=== PATIENT | female | born 1995 | race Caucasian/White ===

== ENCOUNTER 2018-08-02 10:39 | Emergency (ER) | payer OTHER ==
[2018-08-02 11:30] VITALS: BP 96/77
[2018-08-02] MEDS ORDERED: Albuterol 2.5 MG/3 ML NEB.SOL* (0.083%) INH ONE (12:33)
--- NOTE | 2018-08-02 12:38 | ED ---
Respiratory - HPI Summary HPI Summary: complaining of congestion, with cough, hx. of asthma. felt hot , did not take her temperature, nonsmoker, no pleuritic chest pain stepped on something with her right foot, pain on weight bearing - History of Current Complaint Chief Complaint: UCGeneralIllness Stated Complaint: RIGHT FOOT COMPLAINT,COLD SXS Time Seen by Provider: 08/02/18 12:03 Hx Obtained From: Patient Onset/Duration: Gradual Onset Initial Severity: Moderate Pain Intensity: 0 Character: Wheezing, Cough (Productive) Sputum Amount: Moderate Sputum Color: Yellow Aggravating Factor(s): Nothing Alleviating Factor(s): Dose Of Medications Associated Signs and Symptoms: Negative - Risk Factors Status Asthmaticus Risk Factors: Negative Pulmonary Embolism Risk Factors: Negative Cardiac Risk Factors: Negative Pseudomonas Risk Factors: Negative Tuberculosis Risk Factors: Negative - Allergy/Home Medications Allergies/Adverse Reactions: Allergies Allergy/AdvReac Type Severity Reaction Status Date / Time No Known Allergies Allergy Verified 08/02/18 11:23 PMH/Surg Hx/FS Hx/Imm Hx Previously Healthy: Yes Respiratory History: Reports: Hx Asthma - Surgical History Surgery Procedure, Year, and Place: LEFT knee Infectious Disease History: Yes Infectious Disease History: Reports: 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 Denies: Traveled Outside the [place] in Last 30 Days - Social History Alcohol Use: Weekly Alcohol Amount: 2-3/week Substance Use Type: Reports: None Smoking Status (MU): Never Smoked Tobacco Review of Systems Constitutional: Negative Eyes: Negative Positive: Sore Throat Cardiovascular: Negative Positive: Shortness Of Breath Gastrointestinal: Negative Genitourinary: Negative Musculoskeletal: Negative Skin: Other - pain on weight bearing right foot Neurological: Negative All Other Systems Reviewed And Are Negative: Yes Physical Exam Triage Information Reviewed: Yes Vital Signs On Initial Exam: Initial Vitals Temp Pulse Resp BP Pulse Ox 36.4 C 72 16 96/77 100 08/02/18 11:24 08/02/18 11:24 08/02/18 11:24 08/02/18 11:24 08/02/18 11:24 Vital Signs Reviewed: Yes Appearance: Positive: Well-Appearing Skin: Positive: Warm, Dry Head/Face: Positive: Normal Head/Face Inspection Eyes: Positive: Normal ENT: Positive: Normal ENT inspection Neck: Positive: Supple Respiratory/Lung Sounds: Positive: Clear to Auscultation Cardiovascular: Positive: Normal Musculoskeletal: Positive: Other - right foot, with ? foreign body in the forefoot and the right lateral foot Diagnostics - Vital Signs Vital Signs Temp Pulse Resp BP Pulse Ox 08/02/18 11:24 36.4 C 72 16 96/77 100 - Laboratory Lab Statement: Any lab studies that have been ordered have been reviewed, and results considered in the medical decision making process. Disposition - Diagnoses Provider Diagnoses: Asthma exacerbation, Foreign body in foot Is Visit Related: No Discharge - Sign-Out/Discharge Documenting (check all that apply): Patient Departure All imaging exams completed and their final reports reviewed: Yes - foreign body foot in the soft tissues at level of metatarsal phalangeal joint - Discharge Plan Condition: Good Disposition: HOME Prescriptions: Montelukast Sodium TAB* [Singulair TAB*] 10 mg PO BEDTIME #30 tab Patient Education Materials: Asthma (DC), Soft Tissue Foreign Body (ED) Forms: *School Release Referrals: Eliceo Manzanares DPM [Doctor of Podiatric Medicine] - No Primary Care Phys,NOPCP [Primary Care Provider] - - Billing Disposition and Condition Condition: GOOD Disposition: Home
--- NOTE | 2018-08-02 12:58 | RAD ---
Indication: RIGHT foot pain. Possibly stepped on foreign body. Comparison: No relevant prior exams [place] [facility] [place]. Technique: AP and lateral views RIGHT foot. REPORT AND IMPRESSION: #. Reference the lateral view there is an approximate 1.5 mm linear radiopaque density within the superficial plantar soft tissues at the level of the metatarsal phalangeal joints corresponding with the region of clinical concern based on the paper clip marker on the image. #. No subcutaneous emphysema evident. #. Negative for fracture or malalignment.
== END 2018-08-02 14:03 | disposition home or self-care (01) ==
LOC: UCCORT 10:39
DX: J45.901 Unspecified asthma with (acute) exacerbation (principal); W45.8XXA Other foreign body or object entering through skin, initial encounter; Y92.9 Unspecified place or not applicable
CPT/HCPCS: 99202; G0463

== ENCOUNTER 2019-02-08 16:08 | Emergency (ER) | payer OTHER ==
[2019-02-08 17:12] VITALS: BP 94/69
--- NOTE | 2019-02-08 17:49 | UC ---
Back Pain HPI - HPI Summary HPI Summary: 23 yo female drank heavily on 02/05 When she awoke 02/06 she had mid thoracic back pain No recalled trauma hurts to take a deep breath hurts to lift hurts to wear back pack - History of Current Complaint Chief Complaint: UCBackPain Stated Complaint: MID UPPER BACK PAIN Time Seen by Provider: 02/08/19 17:40 Hx Obtained From: Patient Hx Last Menstrual Period: 3-4 months ago Onset/Duration: Gradual Onset, Lasting Days Timing: Constant Severity Initially: Moderate Severity Currently: Moderate Pain Intensity: 5 Pain Scale Used: 0-10 Numeric Character: Dull, Aching, Throbbing Aggravating Factor(s): Movement, Lifting, Bending Alleviating Factor(s): Rest Associated Signs And Symptoms: Positive: Negative Full Body (No Head): 1 - tender/pain - Allergies/Home Medications Allergies/Adverse Reactions: Allergies Allergy/AdvReac Type Severity Reaction Status Date / Time No Known Allergies Allergy Verified 02/08/19 17:12 PMH/Surg Hx/FS Hx/Imm Hx Previously Healthy: Yes - Surgical History Surgical History: Yes Surgery Procedure, Year, and Place: LEFT knee - Family History Known Family History: Positive: Hypertension - Social History Alcohol Use: Weekly Alcohol Amount: 2-3/week Substance Use Type: None Smoking Status (MU): Never Smoked Tobacco - Immunization History Most Recent Tetanus Shot: UTD Review of Systems All Other Systems Reviewed And Are Negative: Yes Constitutional: Positive: Negative Skin: Positive: Negative Eyes: Positive: Negative ENT: Positive: Negative Respiratory: Positive: Negative Cardiovascular: Positive: Negative Gastrointestinal: Positive: Negative Genitourinary: Positive: Negative Motor: Positive: Negative Neurovascular: Positive: Negative Musculoskeletal: Positive: Myalgia - thoracic Neurological: Positive: Negative Psychological: Positive: Negative Physical Exam Triage Information Reviewed: Yes Appearance: Well-Appearing, No Pain Distress, Well-Nourished Vital Signs: Initial Vital Signs Temp 98.3 F 02/08/19 17:03 Pulse 60 02/08/19 17:03 Resp 18 02/08/19 17:03 BP 94/69 02/08/19 17:03 Pulse Ox 100 02/08/19 17:03 Vital Signs Reviewed: Yes Eyes: Positive: Conjunctiva Clear ENT: Positive: Hearing grossly normal. Negative: Nasal congestion, Nasal drainage, Tonsillar exudate, Trismus, Muffled voice, Hoarse voice Neck: Positive: Supple, Nontender, No Lymphadenopathy Respiratory: Positive: Lungs clear, Normal breath sounds, No respiratory distress, No accessory muscle use Cardiovascular: Positive: RRR Abdominal Exam: Normal Musculoskeletal: Positive: ROM Intact, No Edema Neurological: Positive: Alert Psychological Exam: Normal Skin Exam: Normal Back Pain Course/Dx - Differential Dx/Diagnosis Provider Diagnosis: Upper back strain Discharge - Sign-Out/Discharge Documenting (check all that apply): Patient Departure All imaging exams completed and their final reports reviewed: No Studies - Discharge Plan Condition: Stable Disposition: HOME Prescriptions: Cyclobenzaprine (NF) [Cyclobenzaprine 5 MG (NF)] 5 mg PO TID PRN #21 tab PRN Reason: Spasms - Back Patient Education Materials: Thoracic Back Strain (ED) Forms: *School Release Referrals: No Primary Care Phys,NOPCP [Primary Care Provider] - Additional Instructions: aleve 2 twice daily recheck in 1 week if not better - Billing Disposition and Condition Condition: STABLE Disposition: Home
== END 2019-02-08 18:00 | disposition home or self-care (01) ==
LOC: UCCORT 16:08
DX: S29.012A Strain of muscle and tendon of back wall of thorax, initial encounter (principal); X58.XXXA Exposure to other specified factors, initial encounter; Y92.9 Unspecified place or not applicable
CPT/HCPCS: 99212; G0463

== ENCOUNTER 2019-07-31 10:02 | Emergency (ER) | payer OTHER ==
[2019-07-31 11:04] VITALS: BP 102/60
--- NOTE | 2019-07-31 11:08 | UC ---
Throat Pain/Nasal Ruben HPI - History of Current Complaint Chief Complaint: UCRespiratory Stated Complaint: COUGH,SORE THROAT Time Seen by Provider: 07/31/19 11:00 Hx Obtained From: Patient Hx Last Menstrual Period: PERIODS ARE IRREGULAR. LAST PERIOD IN MAY ?: No Onset/Duration: Sudden Onset, Lasting Days - 4 Severity: Mild Pain Intensity: 0 Associated Signs & Symptoms: Positive: Dysphagia, Sinus Discomfort, Nasal Discharge - Allergies/Home Medications Allergies/Adverse Reactions: Allergies Allergy/AdvReac Type Severity Reaction Status Date / Time No Known Allergies Allergy Verified 07/31/19 10:56 Home Medications: Home Medications D-Methorphan/PE/Acetaminophen [Theraflu Severe Cold Mult 20-10-500 mg] 1 tammy PO PRN 07/31/19 [History] diPHENhydraMINE PO* [Benadryl PO 25 MG TAB*] 50 mg PO Q6H PRN 07/31/19 [History Confirmed 07/31/19] PMH/Surg Hx/FS Hx/Imm Hx Previously Healthy: Yes - Surgical History Surgical History: Yes Surgery Procedure, Year, and Place: LEFT knee - Family History Known Family History: Positive: Hypertension - Social History Alcohol Use: Occasionally Alcohol Amount: 2-3/week Substance Use Type: Marijuana Substance Use Comment - Amount & Last Used: OCCASIONALLY Smoking Status (MU): Never Smoked Tobacco - Immunization History Most Recent Tetanus Shot: UTD Review of Systems All Other Systems Reviewed And Are Negative: Yes Constitutional: Positive: Chills, Fatigue ENT: Positive: Sore Throat, Ear Ache, Nasal Discharge, Sinus Congestion Respiratory: Positive: Cough Neurological: Positive: Headache Is Patient Immunocompromised?: No Physical Exam Triage Information Reviewed: Yes Appearance: Well-Nourished, Ill-Appearing, Pain Distress Vital Signs: Initial Vital Signs Temp 98 F 07/31/19 10:58 Pulse 94 07/31/19 10:58 Resp 15 07/31/19 10:58 BP 102/60 07/31/19 10:58 Pulse Ox 100 07/31/19 10:58 Vital Signs Reviewed: Yes Eye Exam: Normal ENT: Positive: Pharyngeal erythema - with PND, Nasal congestion, Nasal drainage , TM bulging, TM dull - right ear, TM red Dental Exam: Normal Neck exam: Normal Respiratory Exam: Normal Respiratory: Positive: Chest non-tender, Lungs clear, Normal breath sounds Cardiovascular Exam: Normal Cardiovascular: Positive: RRR Abdominal Exam: Normal Abdomen Description: Positive: Nontender, No Organomegaly, Soft Bowel Sounds: Positive: Present Musculoskeletal Exam: Normal Neurological Exam: Normal Skin Exam: Normal Throat Pain/Nasal Course/Dx - Course Course Of Treatment: hx obtained, exam performed ,meds reviewed, treated for right otitis, - Differential Dx/Diagnosis Differential Diagnosis/HQI/PQRI: Laryngitis, Pharyngitis, Sinusitis Provider Diagnosis: Right otitis media with effusion Discharge ED - Sign-Out/Discharge Documenting (check all that apply): Patient Departure All imaging exams completed and their final reports reviewed: No Studies - Discharge Plan Condition: Stable Disposition: HOME Prescriptions: Amoxicillin PO (*) [Amoxicillin 875 MG (*)] 875 mg PO BID #20 tab Patient Education Materials: Ear Infection (ED) Forms: *Work Release Referrals: No Primary Care Phys,NOPCP [Primary Care Provider] - Additional Instructions: 1. take the medication as prescribed. 2. Increase fluids and get rest 3. FOllow up if not improving in 1-2 weeks or symtpoms worsen - Billing Disposition and Condition Condition: STABLE Disposition: Home - Attestation Statements Provider Attestation: I was available for consult. This patient was seen by the JOSE ELIAS. The patient was not presented to , seen by or examined by -Kana Pradhan MD
== END 2019-07-31 11:21 | disposition home or self-care (01) ==
LOC: UCCORT 10:02
DX: H66.91 Otitis media, unspecified, right ear (principal); J06.9 Acute upper respiratory infection, unspecified
CPT/HCPCS: 99212; G0463

== ENCOUNTER 2019-10-24 09:21 | Emergency (ER) | payer OTHER ==
[2019-10-24 09:50] VITALS: BP 91/74
--- NOTE | 2019-10-24 10:07 | UC ---
Back Pain HPI - HPI Summary HPI Summary: Pt presents with sudden onset of right side low back pain that radiates across low back and posteriorly down right leg to mid thigh. denies numbness, tingling or loss of bowel or bladder control, denies injury. Pt woke this morning with stiffness and pain this morning. - History of Current Complaint Chief Complaint: UCBackPain Stated Complaint: LOW BACK PAIN Time Seen by Provider: 10/24/19 09:46 Hx Obtained From: Patient Hx Last Menstrual Period: PERIODS ARE IRREGULAR. LAST PERIOD IN MAY ?: No Onset/Duration: Sudden Onset, Still Present Timing: Constant Severity Initially: Moderate Severity Currently: Moderate Pain Intensity: 4 Back Pain: Is Diffuse, Radiates To - posterior right leg Character: Dull, Aching, Spasmodic, Stiffness, Burning Aggravating Factor(s): Movement, Lifting, Bending Alleviating Factor(s): Rest, Position Associated Signs And Symptoms: Positive: Negative - Risk Factors AAA Risk Factors: Negative TAD Risk Factors: Negative Cauda Equina Risk Factors: Negative Epidural Abscess Risk Factors: Negative - Allergies/Home Medications Allergies/Adverse Reactions: Allergies Allergy/AdvReac Type Severity Reaction Status Date / Time No Known Allergies Allergy Verified 10/24/19 09:50 PMH/Surg Hx/FS Hx/Imm Hx Previously Healthy: Yes - Surgical History Surgical History: Yes Surgery Procedure, Year, and Place: LEFT knee - Family History Known Family History: Positive: Hypertension - Social History Occupation: Student Lives: With Family Alcohol Use: Occasionally Alcohol Amount: 2-3/week Substance Use Type: Marijuana Substance Use Comment - Amount & Last Used: OCCASIONALLY Smoking Status (MU): Never Smoked Tobacco Have You Smoked in the Last Year: No - Immunization History Most Recent Tetanus Shot: UTD Vaccination Up to Date: Yes Review of Systems All Other Systems Reviewed And Are Negative: Yes Constitutional: Positive: Negative Skin: Positive: Negative Eyes: Positive: Negative ENT: Positive: Negative Respiratory: Positive: Negative Cardiovascular: Positive: Negative Gastrointestinal: Positive: Negative Genitourinary: Positive: Negative Motor: Positive: Other - pain with ROM Neurovascular: Positive: Negative Musculoskeletal: Positive: Myalgia - low back and right side sciatic pain and c/ o stiffness and radiating pain Neurological: Positive: Negative Psychological: Positive: Negative Is Patient Immunocompromised?: No Physical Exam Triage Information Reviewed: Yes Appearance: Pain Distress - with movement Vital Signs: Initial Vital Signs Temp 98.5 F 10/24/19 09:44 Pulse 77 10/24/19 09:44 Resp 18 10/24/19 09:44 BP 91/74 10/24/19 09:44 Pulse Ox 100 10/24/19 09:44 Vital Signs Reviewed: Yes Eye Exam: Normal ENT Exam: Normal Dental Exam: Normal Neck exam: Normal Respiratory Exam: Normal Musculoskeletal: Positive: Other: - pain with ROM right lower extremity, c/o pain at sciatic right side Neurological Exam: Normal Psychological Exam: Normal Skin Exam: Normal Back Pain Course/Dx - Differential Dx/Diagnosis Differential Diagnosis/HQI/PQRI: Strain, Sprain Provider Diagnosis: Low back strain, Sciatica, right side Discharge ED - Sign-Out/Discharge Documenting (check all that apply): Patient Departure All imaging exams completed and their final reports reviewed: No Studies - Discharge Plan Condition: Stable Disposition: HOME Prescriptions: Cyclobenzaprine TAB* [Flexeril 10 MG TAB*] 10 mg PO TID PRN #15 tab PRN Reason: Pain - Mild Ibuprofen TAB* [Motrin TAB* 600 MG] 600 mg PO Q8H PRN #15 tab PRN Reason: Pain - Mild predniSONE TAB* [Deltasone 10 MG TAB*] 30 mg PO DAILY #12 tab Patient Education Materials: Sciatica (ED), Low Back Strain (ED), Lower Back Exercises (ED) Forms: *Work Release Referrals: [facility] [place] [facility] [place]] - If Needed No Primary Care Phys,NOPCP [Primary Care Provider] - - Billing Disposition and Condition Condition: STABLE Disposition: Home
== END 2019-10-24 10:21 | disposition home or self-care (01) ==
LOC: UCCORT 09:21
DX: S39.012A Strain of muscle, fascia and tendon of lower back, initial encounter (principal); M54.31 Sciatica, right side; X58.XXXA Exposure to other specified factors, initial encounter; Y92.9 Unspecified place or not applicable
CPT/HCPCS: 99212; G0463

== ENCOUNTER 2019-12-24 15:31 | Emergency (ER) | payer OTHER ==
[2019-12-24 16:21] VITALS: BP 96/66
--- NOTE | 2019-12-24 16:34 | UC ---
FLU HPI - HPI Summary HPI Summary: 24-year-old female presents with 45 day history of nasal congestion, bilateral ear fullness, and postnasal drip. States symptoms were initially mild but have worsened over the last 2 days. Occasional dry cough. Denies fever, chills, sore throat, chest pain, shortness of breath, abdominal pain, nausea, vomiting. - History of Current Complaint Chief Complaint: UCGeneralIllness Stated Complaint: COUGH/CONGESTION Time Seen by Provider: 12/24/19 16:11 Hx Obtained From: Patient Hx Last Menstrual Period: irregular Pain Intensity: 5 - Allergy/Home Medications Allergies/Adverse Reactions: Allergies Allergy/AdvReac Type Severity Reaction Status Date / Time No Known Allergies Allergy Verified 12/24/19 16:21 Home Medications: Home Medications Ibuprofen TAB* [Motrin TAB* 600 MG] 600 mg PO Q8H PRN #15 tab 10/24/19 [Rx Confirmed 12/24/19] PMH/Surg Hx/FS Hx/Imm Hx Previously Healthy: Yes - Denies significant PMH - Surgical History Surgical History: Yes Surgery Procedure, Year, and Place: LEFT knee - Family History Known Family History: Positive: Hypertension - Social History Occupation: Student Lives: Dormitory/Roommates Alcohol Use: Occasionally Alcohol Amount: 2-3/week Substance Use Type: Marijuana Substance Use Comment - Amount & Last Used: OCCASIONALLY Smoking Status (MU): Never Smoked Tobacco Have You Smoked in the Last Year: No - Immunization History Most Recent Tetanus Shot: UTD Vaccination Up to Date: Yes Review of Systems All Other Systems Reviewed And Are Negative: Yes Constitutional: Negative: Fever, Chills Skin: Negative: Rash Eyes: Negative: Drainage, Eye Redness ENT: Positive: Ear Ache, Nasal Discharge, Sinus Congestion. Negative: Sore Throat, Sinus Pain/Tenderness Respiratory: Positive: Cough. Negative: Shortness Of Breath Cardiovascular: Negative: Palpitations, Chest Pain Gastrointestinal: Negative: Abdominal Pain, Vomiting, Diarrhea, Nausea Genitourinary: Positive: Negative Musculoskeletal: Positive: Negative Neurological/Mental Status: Positive: Negative Is Patient Immunocompromised?: No Physical Exam - Summary Physical Exam Summary: GENERAL APPEARANCE: Well developed, well nourished, alert and cooperative, and appears to be in no acute distress. EYES: Conjunctiva clear. No drainage. EARS: External auditory canals and tympanic membranes clear, hearing grossly intact. NOSE: Moderate nasal congestion with clear nasal discharge. THROAT: Pharyngeal cobblestoning. No tonsilar inflammation, swelling, exudate, or lesions. Uvula midline. NECK: Neck supple, non-tender without lymphadenopathy. CARDIAC: Normal S1 and S2. No S3, S4 or murmurs. Rhythm is regular. There is no peripheral edema, cyanosis or pallor. Extremities are warm and well perfused. Capillary refill is less than 2 seconds. Peripheral pulses intact. LUNGS: Clear to auscultation without rales, rhonchi, wheezing or diminished breath sounds. ABDOMEN: Positive bowel sounds. Soft, nondistended, nontender. No guarding or rebound. No masses or hepatosplenomegally. MUSKULOSKELETAL: ROM intact to all extremities. No joint erythema or tenderness. Normal muscular development. Normal gait. SKIN: Skin normal color, texture and turgor with no lesions or eruptions. Triage Information Reviewed: Yes Vital Signs: Initial Vital Signs Temp 98.2 F 12/24/19 16:17 Pulse 63 12/24/19 16:17 Resp 14 12/24/19 16:17 BP 96/66 12/24/19 16:17 Pulse Ox 100 12/24/19 16:17 Vital Signs Reviewed: Yes Flu Course/Dx - Course Course Of Treatment: 24-year-old female presents with 45 day history of nasal congestion, bilateral ear fullness, and postnasal drip. States symptoms were initially mild but have worsened over the last 2 days. Occasional dry cough. Denies fever, chills, sore throat, chest pain, shortness of breath, abdominal pain, nausea, vomiting. Afebrile. Vital signs stable. Patient had moderate nasal congestion with clear nasal discharge, normal TMs, pharyngeal cobblestoning without tonsillar swelling or exudate, no cervical lymphadenopathy, clear bilateral breath sounds , and otherwise unremarkable exam. Rapid flu test was negative. Reviewed results with the patient. Recommending symptomatic treatment for a viral upper respiratory infection. She is to return here or follow-up with the [facility] in 5-7 days if symptoms are not improving. Anticipatory guidance and warning symptoms were reviewed with the patient. Verbalizes understanding and agrees with plan of care. - Differential Dx/Diagnosis Differential Diagnosis/HQI/PQRI: Bronchitis, Influenza, Pneumonia, Upper Respiratory Infection Provider Diagnosis: Viral URI Discharge ED - Sign-Out/Discharge Documenting (check all that apply): Patient Departure All imaging exams completed and their final reports reviewed: No Studies - Discharge Plan Condition: Stable Disposition: HOME Patient Education Materials: Upper Respiratory Infection (ED) Forms: *Work Release Referrals: No Primary Care Phys,NOPCP [Primary Care Provider] - Additional Instructions: The rapid flu test was performed in the clinic today was negative. Your history and exam are consistent with a viral upper respiratory infection. Viral infections do not respond to antibiotics and are limited to the treatment of symptoms. Viral infections typically run their course in 7-10 days. Drink plenty of fluids to avoid dehydration especially if you are running any fever. Use an [id number] decongestant such as Sudafed to help with the congestion. Use fluticasone (Flonase) nasal spray 2 sprays each nostril once daily. Take over the counter acetaminophen (Tylenol) or ibuprofen (Advil, Motrin) according to directions as needed for pain or fever. Use salt water gargles several times a day if you have a sore throat. You may also use Chloraseptic spray or Cepacol lonzenges according to directions which contain a numbing medication and can provide some temporary relief from your sore throat. Return here or follow up with [facility] in 5-7 days if symptoms persist. Seek immediate medical attention in the emergency room if you have fever greater than 100.5 F despite taking acetaminophen or ibuprofen, have chest pain , difficulty breathing, are unable to swallow, or have any worsening of symptoms. - Billing Disposition and Condition Condition: STABLE Disposition: Home - Attestation Statements Provider Attestation: I was available for consult. This patient was seen by the JOSE ELIAS. The patient was not presented to , seen by or examined by -Kana Pradhan MD
[2019-12-24 16:41] LABS: Influenza A Molecular Negative (Negative); Influenza B Molecular Negative (Negative)
== END 2019-12-24 16:53 | disposition home or self-care (01) ==
LOC: UCCORT 15:31
DX: J06.9 Acute upper respiratory infection, unspecified (principal)
CPT/HCPCS: 99211; G0463